=== PATIENT | male | born 1985 ===

== ENCOUNTER 2018-03-23 14:17 | Emergency (ER) | payer OTHER ==
[~2018-03-23] VITALS: Ht 182.9 cm; Wt 93.0 kg
== END 2018-03-23 17:25 ==
LOC: ER 14:17
DX: S91.331A Puncture wound without foreign body, right foot, initial encounter (principal); W45.8XXA Other foreign body or object entering through skin, initial encounter; Y93.89 Activity, other specified; Y92.89 Other specified places as the place of occurrence of the external cause; Y99.8 Other external cause status